=== PATIENT | female | born 1945 | race African-American/Black ===

== ENCOUNTER 2016-10-10 04:10 | Emergency (ER) | payer OTHER ==
[~2016-10-10] VITALS: Ht 152.4 cm; Wt 81.0 kg
[~2016-10-10 04:10] MED LIST: ALBU1AER INH; ATOR20TA PO; LISI10TA PO; MECL-62 PO; PROBCAP4 PO; ZETI10TA5 PO
[2016-10-10 04:12] VITALS: BP 162/90; PULSE 59; RESP 16; TEMP 98.3; O2SAT 97
[2016-10-10 05:04] VITALS: BP 174/71; PULSE 76; RESP 18; O2SAT 95
[2016-10-10] MEDS ORDERED: ATOR1TAB18 PO (05:07)
[2016-10-10] MEDS ORDERED: LOSA50TA PO (05:07)
--- NOTE | 2016-10-10 05:58 | PD ---
HPI Chief Complaint: Medical Clearance Time Seen by Provider: 05:24 Travel History International Travel<30 days: No Contact w/Intl Traveler<30days: No Traveled to known affect area: No History of Present Illness HPI Is a 71-year-old woman who presents to the emergency department complaining of funny feeling to her face. She has some left-sided facial discomfort around the side of her jaw that started about 2 days ago. She + she was sleeping on a recliner when she got up afterwards she felt funny feelings on the right side of her face. She also knows her left eye doesn't close all the way. No fevers or chills. No other sensory changes. No numbness tingling weakness, gait instability, clumsiness, or difficulty using her arms. She history of hypertension diabetes but no other complaints. History Past Medical History Narrative Medical Hypertension Diabetes Menopausal: Yes : 3 Para: 3 Social History Alcohol Use: No Tobacco Use: No Allergies-Medications (Allergen,Severity, Reaction): Coded Allergies: Pork (Verified Allergy, Mild, "ITCHING", 03/13/14) Uncoded Allergies: CONTROL PILL (Allergy, Severe, "CHEST PAIN", 05/09/06) Reported Meds & Prescriptions Reported Meds & Active Scripts Active Reported Atorvastatin (Atorvastatin Calcium) 80 Mg Tab 80 Mg PO HS Losartan (Losartan Potassium) 50 Mg Tab 50 Mg PO HS Review of Systems Except as stated in HPI: all other systems reviewed are Neg Physical Exam Narrative GENERAL: Well-appearing 71 year-old woman, no acute distress. SKIN: Focused skin assessment warm/dry. HEAD: Atraumatic. Normocephalic. EYES: Pupils equal and round. No scleral icterus. No injection or drainage. ENT: No nasal bleeding or discharge. Mucous membranes pink and moist. Some facial asymmetry. She appears a little bit of weakness in closing the left eye , as well as with some decrease In chou in the left nasolabial fold. NECK: Trachea midline. No JVD. CARDIOVASCULAR: Regular rate and rhythm. No murmur appreciated. RESPIRATORY: No accessory muscle use. Clear to auscultation. Breath sounds equal bilaterally. GASTROINTESTINAL: Abdomen soft, non-tender, nondistended. Hepatic and splenic margins not palpable. MUSCULOSKELETAL: No obvious deformities. No clubbing. No cyanosis. No edema. NEUROLOGICAL: Awake and alert. Left-sided facial weakness that appears to involve the forehead that is subtle, not definite. EOMs full and intact. No obvious sensory changes. Strength full and equal upper and lower extremities. Normal finger to nose. Normal [id number]. PSYCHIATRIC: Appropriate mood and affect; insight and judgment normal. Data Data Last Documented VS Vital Signs Date Time Temp Pulse Resp B/P Pulse Ox O2 Delivery O2 Flow Rate FiO2 10/10/16 05:04 76 18 174/71 95 Room Air 10/10/16 04:12 98.3 Orders Complete Blood Count With Diff (10/10/16 05:40) Comprehensive Metabolic Panel (10/10/16 05:40) Mri Brain W/O Contrast (10/10/16 ) Labs Laboratory Tests Test 10/10/16 05:30 White Blood Count 10.7 TH/MM3 Red Blood Count 4.50 MIL/MM3 Hemoglobin 13.2 GM/DL Hematocrit 39.6 % Mean Corpuscular Volume 87.9 FL Mean Corpuscular Hemoglobin 29.4 PG Mean Corpuscular Hemoglobin 33.4 % Concent Red Cell Distribution Width 15.0 % Platelet Count 352 TH/MM3 Mean Platelet Volume 8.5 FL Neutrophils (%) (Auto) 65.1 % Lymphocytes (%) (Auto) 25.8 % Monocytes (%) (Auto) 5.2 % Eosinophils (%) (Auto) 2.3 % Basophils (%) (Auto) 1.6 % Neutrophils # (Auto) 7.0 TH/MM3 Lymphocytes # (Auto) 2.8 TH/MM3 Monocytes # (Auto) 0.6 TH/MM3 Eosinophils # (Auto) 0.2 TH/MM3 Basophils # (Auto) 0.2 TH/MM3 CBC Comment DIFF FINAL Differential Comment Sodium Level 141 MEQ/L Potassium Level 3.4 MEQ/L Chloride Level 107 MEQ/L Carbon Dioxide Level 23.0 MEQ/L Anion Gap 11 MEQ/L Blood Urea Nitrogen 10 MG/DL Creatinine 0.61 MG/DL Estimat Glomerular Filtration 118 ML/MIN Rate Random Glucose 115 MG/DL Calcium Level 9.4 MG/DL Total Bilirubin 0.5 MG/DL Aspartate Amino Transf 16 U/L (AST/SGOT) Alanine Aminotransferase 30 U/L (ALT/SGPT) Alkaline Phosphatase 95 U/L Total Protein 7.9 GM/DL Albumin 3.7 GM/DL MDM Medical Decision Making Medical Screen Exam Complete: Yes Emergency Medical Condition: Yes Differential Diagnosis Early Bahena's palsy, early zoster, CVA, other Narrative Course Medical decision making INITIAL: This a 71-year-old woman who presents to the emergency Department with left-sided facial tingling and fullness, some funny feelings in the right side of face, what seems to be some subtle left-sided facial paresis. I think this is likely an earlier mild Bahena's palsy. Given her stroke risk factors, and diagnostic uncertainty, we'll check MRI, rule out CVA, and basic labs. If negative will treat with steroids for likely early Bahena's palsy. Jermaine Polo MD Oct 10, 2016 05:58
[2016-10-10 06:09] LABS: BASOPHIL # 0.2 TH/MM3 (0-0.2); BASOPHIL % 1.6 % (0.0-2.0); EOSINOPHIL # 0.2 TH/MM3 (0-0.4); EOSINOPHIL % 2.3 % (0.0-4.0); HEMATOCRIT 39.6 % (35.0-46.0); HEMO FLAGS DIFF FINAL; LYMPH % 25.8 % (9.0-44.0); LYMPHOCYTE # 2.8 TH/MM3 (1.0-4.8); MEAN CELL VOLUME 87.9 FL (80.0-100.0); MEAN CORPUSCULAR HEMOGLOBIN 29.4 PG (27.0-34.0); MEAN CORPUSCULAR HGB CONC 33.4 % (32.0-36.0); MONO % 5.2 % (0.0-8.0); NEUT % 65.1 % (16.0-70.0); PLATELET COUNT 352 TH/MM3 (150-450); WHITE BLOOD COUNT 10.7 TH/MM3 (4.0-11.0)
[2016-10-10 06:31] LABS: ANION GAP 11 MEQ/L (5-15); AST (GOT) 16 U/L (15-37); BLOOD UREA NITROGEN 10 MG/DL (7-18); CHLORIDE 107 MEQ/L (98-107); GLOMERULAR FILTRATION RATE 118 ML/MIN (>89); POTASSIUM 3.4 MEQ/L (3.5-5.1); SODIUM (NA) 141 MEQ/L (136-145)
[2016-10-10 06:35] LABS: ALKALINE PHOSPHATASE 95 U/L (45-117); ALT (GPT) 30 U/L (10-53); TOTAL BILIRUBIN ADULT 0.5 MG/DL (0.2-1.0)
--- NOTE | 2016-10-10 06:58 | PD ---
Physical Exam Date Seen by Provider: Oct 10, 2016 Time Seen by Provider: 06:57 Narrative The patient is a 71-year-old female was initially evaluated by Dr. Polo. The patient was signed out at 7 AM with MRI of the brain pending to rule out CVA for facial paresthesias. Data Data Last Documented VS Vital Signs Date Time Temp Pulse Resp B/P Pulse Ox O2 Delivery O2 Flow Rate FiO2 10/10/16 08:00 66 16 152/88 97 Room Air 10/10/16 04:12 98.3 Orders Complete Blood Count With Diff (10/10/16 05:40) Comprehensive Metabolic Panel (10/10/16 05:40) Mri Brain W/O Contrast (10/10/16 ) Labs Laboratory Tests Test 10/10/16 05:30 White Blood Count 10.7 TH/MM3 Red Blood Count 4.50 MIL/MM3 Hemoglobin 13.2 GM/DL Hematocrit 39.6 % Mean Corpuscular Volume 87.9 FL Mean Corpuscular Hemoglobin 29.4 PG Mean Corpuscular Hemoglobin 33.4 % Concent Red Cell Distribution Width 15.0 % Platelet Count 352 TH/MM3 Mean Platelet Volume 8.5 FL Neutrophils (%) (Auto) 65.1 % Lymphocytes (%) (Auto) 25.8 % Monocytes (%) (Auto) 5.2 % Eosinophils (%) (Auto) 2.3 % Basophils (%) (Auto) 1.6 % Neutrophils # (Auto) 7.0 TH/MM3 Lymphocytes # (Auto) 2.8 TH/MM3 Monocytes # (Auto) 0.6 TH/MM3 Eosinophils # (Auto) 0.2 TH/MM3 Basophils # (Auto) 0.2 TH/MM3 CBC Comment DIFF FINAL Differential Comment Sodium Level 141 MEQ/L Potassium Level 3.4 MEQ/L Chloride Level 107 MEQ/L Carbon Dioxide Level 23.0 MEQ/L Anion Gap 11 MEQ/L Blood Urea Nitrogen 10 MG/DL Creatinine 0.61 MG/DL Estimat Glomerular Filtration 118 ML/MIN Rate Random Glucose 115 MG/DL Calcium Level 9.4 MG/DL Total Bilirubin 0.5 MG/DL Aspartate Amino Transf 16 U/L (AST/SGOT) Alanine Aminotransferase 30 U/L (ALT/SGPT) Alkaline Phosphatase 95 U/L Total Protein 7.9 GM/DL Albumin 3.7 GM/DL [facility] Medical Record Reviewed: Yes Supervised Visit with BRIAN: No Interpretation(s) Laboratory Tests Test 10/10/16 05:30 White Blood Count 10.7 TH/MM3 Red Blood Count 4.50 MIL/MM3 Hemoglobin 13.2 GM/DL Hematocrit 39.6 % Mean Corpuscular Volume 87.9 FL Mean Corpuscular Hemoglobin 29.4 PG Mean Corpuscular Hemoglobin 33.4 % Concent Red Cell Distribution Width 15.0 % Platelet Count 352 TH/MM3 Mean Platelet Volume 8.5 FL Neutrophils (%) (Auto) 65.1 % Lymphocytes (%) (Auto) 25.8 % Monocytes (%) (Auto) 5.2 % Eosinophils (%) (Auto) 2.3 % Basophils (%) (Auto) 1.6 % Neutrophils # (Auto) 7.0 TH/MM3 Lymphocytes # (Auto) 2.8 TH/MM3 Monocytes # (Auto) 0.6 TH/MM3 Eosinophils # (Auto) 0.2 TH/MM3 Basophils # (Auto) 0.2 TH/MM3 CBC Comment DIFF FINAL Differential Comment Sodium Level 141 MEQ/L Potassium Level 3.4 MEQ/L Chloride Level 107 MEQ/L Carbon Dioxide Level 23.0 MEQ/L Anion Gap 11 MEQ/L Blood Urea Nitrogen 10 MG/DL Creatinine 0.61 MG/DL Estimat Glomerular Filtration 118 ML/MIN Rate Random Glucose 115 MG/DL Calcium Level 9.4 MG/DL Total Bilirubin 0.5 MG/DL Aspartate Amino Transf 16 U/L (AST/SGOT) Alanine Aminotransferase 30 U/L (ALT/SGPT) Alkaline Phosphatase 95 U/L Total Protein 7.9 GM/DL Albumin 3.7 GM/DL MRI of the brain reveals negative MRI of the brain for an acute ischemic event. Minimal empty sella. Differential Diagnosis Differential diagnosis includes Bahena's palsy, focal neurologic deficit, CVA, TIA , multiple sclerosis. Narrative Course The patient was initially evaluated by the previous physician, please refer to the initial history, physical, diagnostic evaluation, treatment modality plan. The patient was signed out at 7 AM with MRI of the brain pending. Laboratory evaluation is unremarkable. MRI the brain is negative. The patient was reevaluated, she is unable to raise her left eyebrow, unable to completely close the left eye, and has left facial droop, consistent with Bahena's palsy. The patient will be placed on prednisone and acyclovir Diagnosis Primary Impression: Bahena's palsy Patient Instructions: General Instructions Additional Instruction: Medications as directed. Follow-up with her primary physician. Please provide the patient a copy of her MRI at discharge. Return if symptoms worsen or progress. Med/Other Pt SpecificInfo: Prescription(s) given Scripts Acyclovir 800 Mg [id number] Mg PO 5 TIMES A DAY #7 TAB Ref 0 Prov:Garry Rai MD 10/10/16 Prednisone (Deltasone)20 Mg Tab40 Mg PO DAILY 5 Days Ref 0 Prov:Garry Rai MD 10/10/16 Disposition: 01 DISCHARGE HOME Condition: Stable Garry Rai MD Oct 10, 2016 06:58
[2016-10-10 08:00] VITALS: BP 152/88; PULSE 66; RESP 16; O2SAT 97
--- NOTE | 2016-10-10 08:36 | RADRPT ---
EXAM DATE/TIME: 10/10/2016 07:42 [facility] COMPARISON: CT BRAIN W/O CONTRAST, March 13, 2014, 13:37. INDICATIONS : Left sided facial droop. MEDICAL HISTORY : Hypertension. Diabetes mellitus type 2. Hypercholesterolemia. SURGICAL HISTORY : Tubal ligation. Foot surgery ENCOUNTER: Initial ACUITY: 1 day PAIN SCORE: 0/10 LOCATION: Cranial TECHNIQUE: Multiplanar, multisequence MRI of the brain was performed without contrast. FINDINGS: There is no restricted diffusion evident. Very minimal periventricular white matter changes are noted. There are no extra-axial fluid collecti ons appreciated. There is no parenchymal hemorrhage, acute infarction or mass lesion. The orbits and paranasal sinuses visualized are unremarkable. CONCLUSION: 1. Negative MRI of the brain for an acute ischemic event. 2. Minimal empty sella. 3. MRI can miss acute hemorrhage. Itz Ricardo MD FACR on October 10, 2016 at 8:24 Board Certified Radiologist. This report was verified electronically.
[2016-10-10] MEDS ORDERED: ACYC800T PO (08:50)
[2016-10-10] MEDS ORDERED: PRED-503 PO (08:50)
[2016-10-10] MEDS ORDERED: predniSONE 20 MG TAB PO ONE (09:00)
== END 2016-10-10 09:20 | disposition home or self-care (01) ==
LOC: NEPC 04:10
DX: G51.0 Bell's palsy (principal); I10 Essential (primary) hypertension
CPT/HCPCS: 70551; 80053; 85025; 99285; J7512